=== PATIENT | male | born 2000 | race Caucasian/White ===

== ENCOUNTER 2022-08-16 09:34 | Outpatient (CLI) | payer BC, SELFPAY | END 2022-08-16 09:35 | disposition home or self-care (01) | LOC: LKVREF 09:40 | PROVIDERS: PCP Family Medicine; Visit Provider Family Medicine | DX: E03.9 Hypothyroidism, unspecified (principal); R19.7 Diarrhea, unspecified | CPT/HCPCS: 84443 ==

== ENCOUNTER 2022-11-22 15:45 | Outpatient (CLI) | payer BC, SELFPAY | END 2022-11-22 15:46 | disposition home or self-care (01) | LOC: NFLDREF 11-23 06:51 | PROVIDERS: PCP Family Medicine; Referring Provider Family Medicine; Visit Provider Family Medicine | DX: E03.9 Hypothyroidism, unspecified (principal) | CPT/HCPCS: 84443 ==

== ENCOUNTER 2024-05-13 16:29 | Outpatient (CLI) | payer BC, SELFPAY | END 2024-05-13 16:30 | disposition home or self-care (01) | LOC: LKVREF 16:30 | PROVIDERS: PCP Family Medicine; Visit Provider Family Medicine | DX: E03.9 Hypothyroidism, unspecified (principal); R53.83 Other fatigue | CPT/HCPCS: 80053; 84443 ==

== ENCOUNTER 2024-05-23 07:16 | Outpatient (CLI) | payer BC, SELFPAY ==
--- NOTE | 2024-05-23 07:15 | CRLHL7_ITS ---
For Patients: As a result of the Century Cures Act, medical imaging exams and procedure reports are released immediately into your electronic medical record. You may view this report before your referring provider. If you have questions, please contact your health care provider. INDICATION: Elevated LFTs COMPARISON: none TECHNIQUE: Real time robins scale imaging and color Doppler analysis was performed of the right upper quadrant. FINDINGS: The patient`s liver is of normal size and has mildly coarsened echogenicity. There is a normal appearance of the hepatic IVC and proximal abdominal aorta. There is no evidence of ascites. The gallbladder is of normal size and there is no evidence of intraluminal stones or sludge. The gallbladder wall measures 2.3 mm in thickness. The common bile duct is of normal size and measures 2.2 mm in diameter at the level of the blank hepatis. The pancreas appears normal. There is no evidence of a stone or hydronephrosis within the right kidney. The right kidney measures 12.3 cm in length. Main portal vein measures 1.5 cm. Main portal vein velocity 23.2 cm/second. Liver measures 17.1 cm. IMPRESSION: Mild hepatic steatosis. Dictated by Poncho Sy MD @ 05/23/2024 10:09:05 AM (Electronically Signed)
== END 2024-05-23 07:17 | disposition home or self-care (01) ==
PROVIDERS: PCP Family Medicine; Visit Provider Family Medicine
DX: R79.89 Other specified abnormal findings of blood chemistry (principal); K76.0 Fatty (change of) liver, not elsewhere classified
CPT/HCPCS: 76705

== ENCOUNTER 2025-05-08 08:18 | Outpatient (CLI) | payer BC, SELFPAY | END 2025-05-08 08:19 | disposition home or self-care (01) | LOC: NFLDREF 05-13 18:56 | PROVIDERS: PCP Family Medicine; Referring Provider Family Medicine; Visit Provider Family Medicine | DX: E03.9 Hypothyroidism, unspecified (principal); Z13.1 Encounter for screening for diabetes mellitus; Z13.6 Encounter for screening for cardiovascular disorders | CPT/HCPCS: 80053; 80061; 84443 ==